=== PATIENT | female | born 1945 | race Caucasian/White ===

== ENCOUNTER → 2016-10-11 | Outpatient (CLI) | payer MEDICAID | LOC: CIMAGING 12:19 | PROVIDERS: ATTEND Family Medicine | DX: I51.9 Heart disease, unspecified (principal); J98.4 Other disorders of lung; I51.7 Cardiomegaly; I70.8 Atherosclerosis of other arteries | CPT/HCPCS: 71020-PO ==

== ENCOUNTER → 2017-06-10 | Outpatient (CLI) | payer MEDICAID | LOC: BRMIMAGING 08:47 | PROVIDERS: ATTEND Internal Medicine Nephrology | DX: E11.29 Type 2 diabetes mellitus with other diabetic kidney complication (principal) | CPT/HCPCS: 76770-PO ==